=== PATIENT | female | born 1955 | race Caucasian/White ===

== ENCOUNTER → 2020-07-30 | Outpatient (CLI) | payer MEDICARE, MEDICAID ==
--- NOTE | 2020-07-30 17:08 | CARD ---
MR#: [id number] Date of Study: 07/30/2020 Ordering Physician: THAI VELASQUEZ, Referring Physician: THAI VELASQUEZ, Tech: Dian De La Garza [facility] APPROVED REPORT EXAM: Two-dimensional and M-mode echocardiogram with Doppler and color Doppler. Other Information Quality : AverageHR: 90bpm INDICATION Chest Pain RISK FACTORS Hypertension Hyperlipidemia 2D DIMENSIONS RVDd1.8 (2.9-3.5cm)Left Atrium(2D)3.2 (1.6-4.0cm) IVSd1.0 (0.7-1.1cm)Aortic Root(2D)3.3 (2.0-3.7cm) LVDd5.3 (3.9-5.9cm)LVOT Diameter1.9 (1.8-2.4cm) PWd1.0 (0.7-1.1cm)LVDs3.9 (2.5-4.0cm) FS (%) 26.0 %SV67.9 ml Aortic Valve AoV Peak Matti.116.4cm/sAoV VTI20.2cm AO Peak GR.5.4mmHgLVOT Peak Matti.91.7cm/s LVOT VTI 18.16cmAO Mean GR.4mmHg FABIENNE (VMAX)1.33or9UMD (VTI)2.68cm2 Mitral Valve MV E Wwohfwsv89.2cm/sMV DECEL SOAM437po MV A Ewavmkfo92.2cm/sMV YHX26xt E/A Ratio0.5MVA (PHT)5.19cm2 TDI E/Lateral E'5.4E/Medial E'3.9 Pulmonary Valve PV Peak Rbfprcra77.0cm/sPV Peak Grad.3mmHg Tricuspid Valve TR P. Twwhylfp823pi/sRAP UERKRGPK3qvTq TR Peak Gr.70vrHcHYHH64hlFd Pulmonary Vein S1 Pknmnvdm51.0cm/sD2 Lcsdtyon17.9cm/s PVa dhtoigaj524iqaf LEFT VENTRICLE The left ventricle is normal size. There is normal left ventricular wall thickness. The systolic func tion is mildly to moderately impaired. The Ejection Fraction is 35-40%. There is global hypokinesis o f the left ventricle. Transmitral Doppler flow pattern is Grade I-abnormal relaxation pattern. RIGHT VENTRICLE The right ventricle is normal size. There is normal right ventricular wall thickness. The right ventr icular systolic function is normal. ATRIA The left atrium size is normal. The right atrium size is normal. The interatrial septum is intact wit h no evidence for an atrial septal defect or patent foramen ovale as noted on 2-D or Doppler imaging. AORTIC VALVE The aortic valve is thickened but opens well. Doppler and Color Flow revealed no significant aortic r egurgitation. There is no significant aortic valvular stenosis. Calculated aortic valve area is 2.81 cm2 with maximum pressure gradient of 6 mmHg and mean pressure gradient of 4 mmHg. MITRAL VALVE The mitral valve is normal in structure and function. There is no evidence of mitral valve prolapse. There is no mitral valve stenosis. Doppler and Color-flow revealed trace mitral regurgitation. TRICUSPID VALVE The tricuspid valve is normal in structure and function. Doppler and Color Flow revealed trace tricus pid regurgitation with an estimated PAP of 21 mmHg. There is no tricuspid valve stenosis. PULMONIC VALVE The pulmonic valve is not well visualized. Doppler and Color Flow revealed trace pulmonic valvular re gurgitation. GREAT VESSELS The aortic root is normal in size. The ascending aorta is normal in size. The IVC is normal in size a nd collapses >50% with inspiration. PERICARDIAL EFFUSION There is no evidence of significant pericardial effusion. Critical Notification Critical Value: No <Conclusion> The left ventricle is normal size. The systolic function is mildly to moderately impaired. The Ejection Fraction is 35-40%. There is global hypokinesis of the left ventricle. Doppler and Color Flow revealed no significant aortic regurgitation. There is no significant aortic valvular stenosis. Doppler and Color-flow revealed trace mitral regurgitation. Doppler and Color Flow revealed trace tricuspid regurgitation with an estimated PAP of 21 mmHg. Signed by : Kobe Govea MD Electronically Approved : 07/30/2020 17:07:58
== END ==
LOC: ECHO 10:27
PROVIDERS: ATTEND Internal Medicine Cardiovascular Disease
DX: R07.9 Chest pain, unspecified (principal)
CPT/HCPCS: 93306

== ENCOUNTER → 2020-08-22 | Outpatient (CLI) | payer MEDICARE, MEDICAID ==
[~2020-08-22] MED LIST: ANAS1TAB47 PO; ASPI-630 PO; CYCL5TAB PO; GABA-585 PO; HYDR12.575 PO; MELO7.5T29 PO; METO25TA4 PO; POTA10TA6 PO; PRAV40TA2 PO
== END ==
LOC: LAB 08:05
PROVIDERS: ATTEND Internal Medicine Cardiovascular Disease
DX: Z01.812 Encounter for preprocedural laboratory examination (principal); Z20.822 Contact with and (suspected) exposure to COVID-19; I42.9 Cardiomyopathy, unspecified
CPT/HCPCS: U0003; U0005

== ENCOUNTER 2020-08-25 06:45 | Outpatient (CLI) | payer MEDICARE, MEDICAID ==
[2020-08-25] VITALS (10 sets, daily range): BP systolic 133–160; BP diastolic 68–105
[~2020-08-25] VITALS: Ht 167.6 cm; Wt 77.6 kg
[2020-08-25] MEDS ORDERED: ANAS1TAB47 PO (07:05)
[2020-08-25] MEDS ORDERED: POTA10TA6 PO (07:05)
[2020-08-25] MEDS ORDERED: PRAV40TA2 PO (07:27)
[2020-08-25] MEDS ORDERED: GABA-585 PO (07:27)
[2020-08-25] MEDS ORDERED: METO25TA4 PO (07:27)
[2020-08-25] MEDS ORDERED: CYCL5TAB PO (07:27)
[2020-08-25] MEDS ORDERED: MELO7.5T29 PO (07:27)
[2020-08-25] MEDS ORDERED: ASPI-630 PO (07:27)
[2020-08-25] MEDS ORDERED: HYDR12.575 PO (07:27)
[2020-08-25 07:33] LABS: HEMATOCRIT 38.4 % (36.0-47.0); HEMOGLOBIN 13.4 g/dL (12.0-15.5); RED BLOOD COUNT 4.3 x10^6/uL (3.50-5.40); RED CELL DISTRIBUTION WIDTH 13.2 % (11.5-14.5); WHITE BLOOD COUNT 5.3 x10^3/uL (4.0-11.0)
[2020-08-25] MEDS ORDERED: LIDOCAINE 1% PF 2 ML VIAL. ONE (07:37)
[2020-08-25] MEDS ORDERED: IODIXANOL 320 MG/ML 100 ML VIAL. ONE (07:38)
[2020-08-25 07:42] LABS: CALCIUM 9.5 mg/dL (8.5-10.1); CREATININE 0.8 mg/dL (0.6-1.0); GFR 71.5; POTASSIUM 3.6 mmol/L (3.5-5.1)
[2020-08-25 07:44] LABS: PROTHROMBIN TIME PATIENT 11.4 SEC (11.7-14.0)
[2020-08-25] MEDS ORDERED: fentaNYL PF VIAL 100 MCG/2 ML VIAL ONE (08:12)
[2020-08-25] MEDS ORDERED: HEPARIN for IV BOLUS 10,000 UNIT/10 ML VIAL. ONE (08:12)
[2020-08-25] MEDS ORDERED: MIDAZOLAM HCL/PF 2 MG/2 ML VIAL. ONE ×2 (08:12→08:39)
[2020-08-25] MEDS ORDERED: VERAPAMIL 5 MG/2 ML VIAL. ONE (08:13)
[2020-08-25] MEDS ORDERED: NITROGLYCERIN 200 MCG/2 ML SYRINGE FOR CATH/VASC LAB. ONE (08:13)
--- NOTE | 2020-08-25 08:40 | PDOC ---
MODERATE SEDATION ASSESSMENT RISKS/ALTERNATIVES Risks/Alternatives Risks and alternatives of this type of sedation and procedure discussed with: RISK/ALTERNATIVES: Patient H & P ON CHART H & P H & P on chart and reviewed for co-morbid conditions and appropriate labs. H&P ON CHART: Yes STATUS PREG STATUS ASSESSED: N/A MEDS/ALLERGIES REVIEWED Meds/Allergies Reviewed Medications and Allergies including time and route of recently administered narcotics and sedatives. MEDS/ALLERGIES REVIEWED: Yes ASA RATING ASA RATING: III AIRWAY ASSESSMENT Airway Assessment Airway patency, oral function limitations, presence of caps, crowns, dentures, partials, and ability to extend neck assessed. AIRWAY ASSESSMENT: Yes MALLAMPATI SCORE MALLAMPATI SCORE: II PRE-SEDATION ASSESSMENT PRE-SEDATION ASSESSMENT: Yes THAI VELASQUEZ MD August 25, 2020 08:40
[2020-08-25] MEDS ORDERED: NITROGLYCERIN 200 MCG/2 ML SYRINGE FOR CATH/VASC LAB. IART ONE (08:45)
[2020-08-25] MEDS ORDERED: HEPARIN for IV BOLUS 10,000 UNIT/10 ML VIAL. IART ONE (08:45)
[2020-08-25] MEDS ORDERED: MIDAZOLAM HCL/PF 2 MG/2 ML VIAL. IV ONE (08:45)
[2020-08-25] MEDS ORDERED: LIDOCAINE 1% PF 2 ML VIAL. INJ ONE (08:45)
[2020-08-25] MEDS ORDERED: VERAPAMIL 5 MG/2 ML VIAL. IART ONE (08:45)
[2020-08-25] MEDS ORDERED: IODIXANOL 320 MG/ML 100 ML VIAL. IART ONE (08:45)
[2020-08-25] MEDS ORDERED: fentaNYL PF VIAL 100 MCG/2 ML VIAL IV ONE (08:45)
--- NOTE | 2020-08-25 09:27 | CARD ---
MR#: [id number] Date of Study: 08/25/2020 Ordering Physician: THAI EPPERSON, Referring Physician: THAI EPPERSON Tech: RT Bruce(R) APPROVED REPORT Technologist: Loraine Blackmon RT(R) Nurse: Claudia Albarran RN Procedure(s) performed: Left heart catheterization, selective coronary angiography and left ventricul ography via right transradial approach MODERATE SEDATION TIME: 27 MINUTES FLUORO TIME: 2.6 MIN DOSE: 24 GYCM2 CONTRAST: 84CC VISI INDICATION The indication(s) include : Chest pain concerning for unstable angina and cardiomyopathy. [facility] Clinical Frailty Scale [facility] Clinical Frailty Scale: Mildly Frail Heart Failure Heart Failure: No CASE TECHNIQUE IV conscious sedation was used throughout procedure with appropriate monitoring and was performed in the presence of a registered nurse who was an independent trained observer other than the physician p erforming the procedure. During this case, Fluoroscopy and low osmolar contrast were used for imaging . Specimen(s) Removed: No Estimated Blood loss: 15 cc's. PROCEDURE NARRATIVE After explaining the risks, benefits and alternative options, informed consent was obtained from toan ent. Patient was brought to the cardiac [employer] [employer] and right wrist was prepped and draped in the usual fashion after confirming a positive modified Talon's test. Arterial access was obtained in the righ t radial artery and a 6 [place] sheath was inserted. 6 [place] Harman catheter was used to perform lorraine ective angiography of the left and right coronary arteries. 6 [place] pigtail catheter was used to pe rform left ventriculography. Patient tolerated the procedure well. Hemostasis was achieved using TR band. There were no immediate complications. The following findings were noted. FINDINGS 1. Hemodynamics: Left ventricular end-diastolic pressure of 15 mmHg. No pullback gradient across th e aortic valve. 2. Left ventriculography: Moderate left ventricular systolic dysfunction with ejection fraction em mated at 35 to 40%. No significant mitral regurgitation seen. 3. Coronary angiography: a. The left main coronary artery arose from the left sinus of Valsalva, gave rise to the left anteri or descending and left circumflex arteries and did not show any significant stenosis. b. The left anterior descending artery did not show any significant stenosis. c. The left circumflex artery did not show any significant stenosis. d. The right coronary artery was a large and dominant vessel arising from the right sinus of Valsalv a that did not show any significant stenosis. Conclusion 1. No significant coronary artery disease 2. Moderate left ventricle systolic dysfunction with ejection fraction estimated at 35 to 40% Recommendations Optimization of medical therapy for nonischemic cardiomyopathy Signed by : Thai Epperson, Electronically Approved : 08/25/2020 09:27:09
[2020-08-25] MEDS ORDERED: IV 1/2 NORMAL SALINE 1,000 ML IV SCH (09:30)
--- NOTE | 2020-08-25 11:13 | NUR ---
discharge instructions reviewed with patient and family. TR band dc'd and armboard reapplied. PIV dc'd. Pt ambulated and tolerated PO. Pt discharged to home with family
== END 2020-08-25 11:15 | disposition home or self-care (01) ==
LOC: CCL 06:45
PROVIDERS: ATTEND Internal Medicine Cardiovascular Disease
DX: I20.0 Unstable angina (principal); I10 Essential (primary) hypertension; E78.00 Pure hypercholesterolemia, unspecified; Z79.82 Long term (current) use of aspirin; Z79.899 Other long term (current) drug therapy; Z98.890 Other specified postprocedural states; Z88.8 Allergy status to other drugs, medicaments and biological substances; Z85.3 Personal history of malignant neoplasm of breast
CPT/HCPCS: 36415; 80048; 85027; 85610; 93458; 99152; 99153; C1769; C1894; J1644; J2250; J3010; J3490; Q9967

== ENCOUNTER → 2021-03-26 | Outpatient (CLI) | payer MEDICARE, MEDICAID ==
[2020-08-25 11:15] VITALS: BP 141/68
[~2021-03-26] MED LIST changes: +POTA-112 PO; -POTA10TA6 PO
--- NOTE | 2021-03-27 10:46 | CARD ---
MR#: [id number] Date of Study: 03/26/2021 Ordering Physician: THAI VELASQUEZ, Referring Physician: THAI VELASQUEZ, Tech: Dian De La Garza, [facility] APPROVED REPORT EXAM: Two-dimensional and M-mode echocardiogram with Doppler and color Doppler. Other Information Quality : GoodHR: 75bpm INDICATION Cardiomyopathy RISK FACTORS Hypertension Hyperlipidemia Diabetes 2D DIMENSIONS RVDd2.7 (2.9-3.5cm)Left Atrium(2D)3.2 (1.6-4.0cm) IVSd0.8 (0.7-1.1cm)Aortic Root(2D)3.4 (2.0-3.7cm) LVDd5.5 (3.9-5.9cm)LVOT Diameter2.1 (1.8-2.4cm) PWd0.8 (0.7-1.1cm)LVDs4.1 (2.5-4.0cm) FS (%) 24.0 %SV68.5 ml Aortic Valve AoV Peak Matti.119.4cm/sAoV VTI27.2cm AO Peak GR.5.7mmHgLVOT Peak Matti.73.7cm/s LVOT VTI 17.43cmAO Mean GR.4mmHg FABIENNE (VMAX)1.44kh4NZE (VTI)2.18cm2 Mitral Valve MV E Wykjclqe14.3cm/sMV DECEL [id number] MV A Gnbwdykt76.3cm/sMV E Mean Gr.2mmHg MV MYJ12jcD/A Ratio0.9 MVA (PHT)3.12cm2 TDI E/Lateral E'10.3E/Medial E'9.0 Pulmonary Valve PV Peak Zmjoduov27.7cm/sPV Peak Grad.2mmHg Tricuspid Valve TR P. Vgxewcyg646mo/sRAP RUOKSEWY3ezJb TR Peak Gr.86juMoZNZI24llQq Pulmonary Vein S1 Qsxkulqb76.1cm/sD2 Aziiqvuw20.0cm/s LEFT VENTRICLE The left ventricle is normal size. There is mild concentric left ventricular hypertrophy. LV systolic function is mildly to moderately impaired. The LV Ejection Fraction is 35 to 40%. There is global hy pokinesis of the left ventricle. Transmitral Doppler flow pattern is Grade II-pseudonormal filling dy namics. RIGHT VENTRICLE The right ventricle is normal size. There is normal right ventricular wall thickness. The right ventr icular systolic function is normal. ATRIA The left atrium size is normal. The right atrium size is normal. The interatrial septum is intact wit h no evidence for an atrial septal defect or patent foramen ovale as noted on 2-D or Doppler imaging. AORTIC VALVE The aortic valve is normal in structure and function. Doppler and Color Flow revealed trace aortic re gurgitation. There is no significant aortic valvular stenosis. MITRAL VALVE The mitral valve is normal in structure and function. There is no evidence of mitral valve prolapse. There is no mitral valve stenosis. Doppler and Color-flow revealed trace mitral regurgitation. TRICUSPID VALVE The tricuspid valve is normal in structure and function. Doppler and Color Flow revealed trace tricus pid regurgitation with an estimated PAP of 34 mmHg. There is no tricuspid valve stenosis. PULMONIC VALVE The pulmonary valve is normal in structure and function. Doppler and Color Flow revealed trace pulmon ic valvular regurgitation. GREAT VESSELS The aortic root is normal in size. The ascending aorta is normal in size. The IVC is normal in size a nd collapses >50% with inspiration. PERICARDIAL EFFUSION There is no evidence of significant pericardial effusion. Critical Notification Critical Value: No <Conclusion> The left ventricle is normal size. LV systolic function is mildly to moderately impaired. The LV Ejection Fraction is 35 to 40%. There is global hypokinesis of the left ventricle. There is mild concentric left ventricular hypertrophy. Doppler and Color Flow revealed trace aortic regurgitation. There is no significant aortic valvular stenosis. Doppler and Color-flow revealed trace mitral regurgitation. Doppler and Color Flow revealed trace tricuspid regurgitation with an estimated PAP of 34 mmHg. Signed by : Kobe Govea MD Electronically Approved : 03/27/2021 10:46:24
== END ==
LOC: ECHO 07:41
PROVIDERS: ATTEND Internal Medicine Cardiovascular Disease
DX: I51.7 Cardiomegaly (principal); I50.1 Left ventricular failure, unspecified; I42.9 Cardiomyopathy, unspecified
CPT/HCPCS: 93306